=== PATIENT | female | born 1985 | race Two or more races ===

== ENCOUNTER 2024-12-13 16:42 | Inpatient (IN) | payer MEDICAID, OTHER ==
[~2024-12-13] VITALS: Ht 165.1 cm; Wt 66.0 kg
[2024-12-13 17:50] LABS: Albumin 3.5 g/dL (3.2-4.8); Anion Gap 8 (5-15); BUN/Creatinine Ratio 5.7 (10.0-20.0); Calcium 8.7 mg/dL (8.7-10.4); Carbon Dioxide 25 mmol/L (20-31); Chloride 103 mmol/L (98-107); Potassium 4.4 mmol/L (3.5-5.1)
[2024-12-13 17:52] LABS: Alanine Aminotransferase < 9 U/L (7-40); Alkaline Phosphatase 155 U/L (46-116); Bilirubin, Total 0.2 mg/dL (0.2-1.0); Blood Urea Nitrogen 6 mg/dL (9-23); Glucose 242 mg/dL (74-106); Sodium 136 mmol/L (136-145); Total Protein 8.3 g/dL (5.7-8.2)
--- NOTE | 2024-12-13 17:55 | ED.PDOC ---
Musculoskeletal HPI Comments HPI: 39y F who presents to the ED via EMS for chief complaint of extremity pain - pt has wound to the R foot and had appt with haulage boss Agustin Lyles at earlier this AM and states he was told to come to the ED to be admitted and debridement surgery on R foot tomorrow AM, 12/14/24 - pt states she had wound to the R foot 3x weeks prior and came to and had paddy bandage applied and discharged with outpatient wound care - pt states she has been having home health care come 2x weekly for wound care -pt states she noted increasing pain and made appt with haulage boss today - pt in the ED, states she has history of DM 1 and has history of muliple amputations on foot. - pt presents to the ED and states she had R foot bandaged by DR Velez earlier this AM - pt otherwise ambulatory on scene - pt denies any other symptoms at this time - pt has noted BP of 169/74 but otherwise stable vitals in the ED Patient is currently not on any antibiotics. Past Medical History: DM 1, NEUROPATHY, ANEMIA, Past Surgical History: amputation of 4th and 5th toes L foot, 2 x c-sections Social History: Denies ETOH, smoking, and drug use. Medications: unknown Allergies: ceftriaxone, doxycycline HPI: Poor Historian. REVIEW OF SYSTEMS: CONSTITUTIONAL: Denies acute: fever, diaphoresis, chills, generalized weakness. HEAD: Denies acute: headache, photophobia Eyes: Denies acute: Double vision, vision loss, eye pain, eye discharge. EARS: Denies acute: tinnitus, hearing loss, ear discharge, ear pain, THROAT: Denies acute: sore throat, swelling, difficulty swallowing , pain with swallowing, change in voice. NECK: Denies acute: neck pain, neck swelling, stiff neck. HEART: Denies acute : chest pain, palpitations, LUNGS: Denies acute: SOB, wheezing, cough, hemoptysis ABDOMEN: Denies acute: abdominal pain, Nausea, Vomiting, diarrhea, melena , hematemesis, hematochezia SKIN: Denies acute: rash, redness, lesions, itchiness. EXTREMITIES: Denies acute: calf pain, numbness, tingling, weakness, Denies acute: Low back pain. Neuro: Denies acute: focal neurological deficit, motor or sensory focal neurological deficit, tremors, seizure like activity, confusion, dizziness, change in mental status, loss of bowel or bladder function, cauda equina like symptoms. : Denies acute: dysuria, hematuria, flank pain, increase in urinary frequency. PSYCH: Denies acute: hallucination, suicidal ideation, homicidal ideation. FEMALE: Denies acute: abnormal vaginal bleeding, foul odor, unusual discharge. PHYSICAL EXAM: General: ------no--acute distress, awake and alert. Head: normocephalic, atraumatic. Neck: supple, trachea is midline, no swelling. Throat: Normal phonation. Eyes:, no erythema, no purulent discharge, no proptosis, no icterus. Heart: regular rate, regular rhythm, no significant murmur appreciated. Lungs: no apparent respiratory distress, Able to speak in full sentences. No wheezing, no rhonchi, no crackles. No stridors Clear to auscultation bilaterally. Abdomen: non tender to palpation, non distended, soft, no guarding, no rebound, + bowel sounds. Neuro: Awake, Alert, oriented to name, self, situation, follows commands GCS=15. Speech is normal. Skin: no petechia, no purpura, no cyanosis, non-pale, not jaundice. Lower extremities: --no - Pitting edema no deformity, no focal swelling, no calf TTP. Patient has chronic deformity of her left medial malleoli. History of left foot toe amputation. Right lower extremity right foot ankle is in wound dressing from the haulage boss's office. The has been showed me the pictures of the wound today. Noted diffuse deep ulcer at the plantar aspect of the right foot. Makes eye contact. moves all four extremities. Face: no apparent facial droop. Ambulating in the ED independently. ED COURSE: DISCLAIMER: This medical document was created using an electronic medical record system with voice recognition software and computerized dictation system. Although this document has been carefully reviewed, there might still be some phonetic and ty pographical errors. Occasional wrong-word or "sound-alike" substitutions may have occurred due to the inherent limitations of voice recognition software. These areas are purely typographical due to imperfections of the software programs and do not reflect any compromise in the patient's medical care. Please read the chart carefully and recognize, using context, where these substitutions have occurred. Chief Complaint: Medical Clearance Time Seen by MD: 17:45 Reviewed Notes: Medications, Allergies Allergies: Coded Allergies: Ceftriaxone (Verified Allergy, Severe, 12/13/24) PT GETS INCREASED GENERALIZED PAIN AND NUMBNESS Doxycycline (Verified Allergy, Unknown, 12/13/24) Information Source: Patient, Spouse Mode of Arrival: Ambulatory Was a procedure done? Was a procedure done?: No Differential Diagnosis EXT Differential Diagnosis: Cellulitis, CHF, Deep Vein Thrombosis, Compartment Syndrome, Fracture, Sprain, Dislocation, Laceration, Septic, Neurovascular injury, Arthritis, Bursitis, Other (Osteomyelitis) X-Ray, Labs, Meds, VS Vital Signs Date Time Temp Pulse Resp B/P (MAP) Pulse Ox O2 Delivery O2 Flow Rate FiO2 12/13/24 18:30 98.4 95 18 143/81 (101) 97 98.4 12/13/24 16:45 98.3 97 18 169/74 97 98.3 Lab Test 12/13/24 17:20 Range/Units Sodium Level 136 136-145 mmol/L Potassium Level 4.4 3.5-5.1 mmol/L Chloride Level 103 98-107 mmol/L Carbon Dioxide Level 25 20-31 mmol/L Anion Gap 8 5-15 Blood Urea Nitrogen 6 L 9-23 mg/dL Creatinine 1.05 H 0.550-1.02 mg/dL Glomerular Filtration Rate Calc 69 >90 mL/min BUN/Creatinine Ratio 5.7 L 10.0-20.0 Serum Glucose 242 H 74-106 mg/dL Lactic Acid Level 0.5 0.4-2.0 mmol/L Calcium Level 8.7 8.7-10.4 mg/dL Total Bilirubin 0.2 0.2-1.0 mg/dL Aspartate Amino Transferase (AST) 15 13-40 U/L Alanine Aminotransferase (ALT) < 9 7-40 U/L Alkaline Phosphatase 155 H 46-116 U/L C-Reactive Protein High Sensitivity 0.59 <1.0 mg/dL Total Protein 8.3 H 5.7-8.2 g/dL Albumin 3.5 3.2-4.8 g/dL Microbiology Date/Time Source Procedure Growth Status 12/13/24 17:20 Blood Blood Culture - Preliminary NO GROWTH AFTER 48 HOURS OF INCUBATION. Resulted 12/13/24 17:10 Blood Blood Culture - Preliminary NO GROWTH AFTER 48 HOURS OF INCUBATION. Resulted [facility] [id number] [facility] [address] Ph: [phone] DIAGNOSTIC IMAGING Diagnostic Imaging Report : [id number] Signed PATIENT: TERESA BRITO ACCT: [id number] UNIT: [id number] : 1985 LOC: ER ROOM / BED: / AGE / SEX: 39 / F ADM STATUS: REG ER SERVICE 1748 ORDERING PHYSICIAN: JOSEF TORRES DO PROCEDURE(s): RFOOT - R FOOT 3 VIEW XRAY REASON: DIABETIC FOOT ULCER ORDER NUMBER(s): [id number], ACCESSION NUMBER(s): [id number] EXAM: XY R FOOT 3 VIEW XRAY CLINICAL HISTORY: DIABETIC FOOT ULCER COMPARISON: None TECHNIQUE: XY R FOOT 3 VIEW XRAY Findings/Impression: 3 views of the right foot. There is no evidence of an acute fracture, dislocation, osseous erosions, blastic, or lytic lesions. No radiopaque foreign bodies. Small lateral soft tissue injury. Possible solitary locule of subcutaneous emphysema seen on the oblique view. Cannot exclude an underlying infectious process. Recommend contrast-enhanced MRI or a nuclear medicine WBC scan for further evaluation as clinically indicated. ATED BY: MARYBEL PADILLA DO DICTATED DATE/TIME: 12/13/241834 SIGNED BY: MARYBEL PADILLA DO SIGNED DATE/TIME: 12/13/241834 CC: Time of 1ST Reevaluation: 00:00 Reevaluation 1ST: Patient Education/Counseling: Diagnosis, Treatment Family Education/Counseling: Diagnosis, Treatment Comments MDM: patient presented with the above HPI.--diabetic foot ulcer----workup was initiated. patient was found with the above mentioned diagnosis. the following medications were ordered: please refer to order lists of meds and tests obtained by myself Dr. Torres. Patient ED course and VS have been stabilized. Patient has been reassessed in the ED and remained in a stable condition. Pertinent incidental findings were discussed with the patient and/or family. Patient/family voices understanding and is agreeable with plan. Patient has been observed in the ED adequate length of time to insure improvement/stability. Escalation of care considered: Consideration of escalation to observation or admission Antibiotics initiated. Patient was ADMITTED to the medicine team for further evaluation and treatment of their presentation. All the reports of any imaging studies that were ordered by myself were reviewed by myself. Sepsis Sepsis Reasesment Focused Exam Orders: Laboratory Tests 12/13/24 17:20: Lactic Acid Level 0.5 Departure 1 Departure Time of Disposition: 18:35 Impression: Primary Impression: Diabetic ulcer of right foot Disposition: ADMITTED INPATIENT Admit to: Tele Condition: Guarded Discharged With: Self Critical Care Note Critical Care Time?: No Stability Stability form required: No I personally scribed for JOSEF TORRES DO ([email or web address]) on 12/13/24 at 17:55. Electronically submitted by Luis F Davis ([email or web address]). I personally scribed for JOSEF TORRES DO ([email or web address]) on 12/13/24 at 21:38. Electronically submitted by Luis F Davis ([email or web address]). I personally scribed for JOSEF TORRES DO ([email or web address]) on 12/14/24 at 10:13. Electronically submitted by Yobany Mcghee ([email or web address]). JOSEF TORRES DO Dec 13, 2024 17:55
--- NOTE | 2024-12-13 18:37 | DVH ---
EXAM: XY R FOOT 3 VIEW XRAY CLINICAL HISTORY: DIABETIC FOOT ULCER COMPARISON: None TECHNIQUE: XY R FOOT 3 VIEW XRAY Findings/Impression: 3 views of the right foot. There is no evidence of an acute fracture, dislocation, osseous erosions, blastic, or lytic lesions. No radiopaque foreign bodies. Small lateral soft tissue injury. Possible solitary locule of subcutaneous emphysema seen on the obli que view. Cannot exclude an underlying infectious process. Recommend contrast-enhanced MRI or a [facility] medicine WBC scan for further evaluation as clinically indicated.
[2024-12-13] MEDS ORDERED: VANCOMYCIN PER PHARMACY 0 MG IV SCH (19:15)
[2024-12-13] MEDS ORDERED: DEXTROSE (50%) 50ML SYRG IV PRN (19:15)
--- NOTE | 2024-12-13 19:15 | DVHHP2 ---
History of Present Illness Reason for Visit: Right foot wound History of Present Illness 39-year-old female presents for evaluation of right foot wound. Patient was seen by her client success manager today who advised her to present for admission. She states client success manager is planning to do a debridement tomorrow in the morning. Patient denies fever or chills. No pain. No other acute symptoms Past Medical History Diabetes mellitus, hypertension Past Surgical History Toe amputation, Family History Noncontributory Smoke: No ALCOHOL: none Drugs: None Lives: with Family Review of Systems Review of Systems Review of systems are currently negative otherwise addressed in HPI. Allergies: Coded Allergies: Ceftriaxone (Verified Allergy, Severe, 12/13/24) PT GETS INCREASED GENERALIZED PAIN AND NUMBNESS Doxycycline (Verified Allergy, Unknown, 12/13/24) Medications Current Medications Medications Dose Ordered Sig/Duncan Route Start Time Stop Time Status Last Admin Dose Admin Hydralazine HCl 10 mg Q6HP PRN IV 12/13/24 19:15 UNV Vancomycin HCl 0 ml @ 0 mls/hr UD IV 12/13/24 19:15 UNV Piperacillin Sod/ Tazobactam Sod 100 ml @ 25 mls/hr Q8HR IV 12/13/24 22:00 UNV Diagnostic Test (Pha) 1 strip Q6HR 12/14/24 00:00 UNV Insulin Human Regular Q6HR SC 12/14/24 00:00 UNV Dextrose 50 ml UD PRN IV 12/13/24 19:15 UNV Ondansetron HCl 4 mg Q4HP PRN IV 12/13/24 19:15 UNV Morphine Sulfate 2 mg Q4HPRN PRN IV 12/13/24 19:15 UNV Exam Vital Signs Vital Signs Date Time Temp Pulse Resp B/P (MAP) Pulse Ox O2 Delivery O2 Flow Rate FiO2 12/13/24 16:45 98.3 97 18 169/74 97 98.3 Exam Gen: 39-year-old female in mild distress Skin: Warm, dry, normal color and texture, no rash. HEENT: Normocephalic atraumatic, mucous membranes moist and pink. Neck: Cervical and supraclavicular nodes normal without enlargement, trachea is midline, thyroid gland is normal without masses. Pulmonary: Clear to auscultation and percussion bilaterally. Cardiac: Regular rate and rhythm. No murmur Abdomen: Soft, nontender, nondistended, bowel sounds present all 4 quadrants, no guarding, no rigidity, no organomegaly. Extremities: No cyanosis, clubbing, right foot wound Neuro: Cranial nerves II through XII grossly intact, normal affect and speech, no focal motor deficits. Labs/Xrays ORDERING PHYSICIAN: JOSEF TORRES DO PROCEDURE(s): RFOOT - R FOOT 3 VIEW XRAY REASON: DIABETIC FOOT ULCER ORDER NUMBER(s): [id number], ACCESSION NUMBER(s): [id number] EXAM: XY R FOOT 3 VIEW XRAY CLINICAL HISTORY: DIABETIC FOOT ULCER COMPARISON: None TECHNIQUE: XY R FOOT 3 VIEW XRAY Findings/Impression: 3 views of the right foot. There is no evidence of an acute fracture, dislocation, osseous erosions, blastic, or lytic lesions. No radiopaque foreign bodies. Small lateral soft tissue injury. Possible solitary locule of subcutaneous emphysema seen on the oblique view. Cannot exclude an underlying infectious process. Recommend contrast-enhanced MRI or a nuclear medicine WBC scan for further evaluation as clinically indicated. Labs Test 12/13/24 17:20 Range/Units Sodium Level 136 136-145 mmol/L Potassium Level 4.4 3.5-5.1 mmol/L Chloride Level 103 98-107 mmol/L Carbon Dioxide Level 25 20-31 mmol/L Anion Gap 8 5-15 Blood Urea Nitrogen 6 L 9-23 mg/dL Creatinine 1.05 H 0.550-1.02 mg/dL Glomerular Filtration Rate Calc 69 >90 mL/min BUN/Creatinine Ratio 5.7 L 10.0-20.0 Serum Glucose 242 H 74-106 mg/dL Lactic Acid Level 0.5 0.4-2.0 mmol/L Calcium Level 8.7 8.7-10.4 mg/dL Total Bilirubin 0.2 0.2-1.0 mg/dL Aspartate Amino Transferase (AST) 15 13-40 U/L Alanine Aminotransferase (ALT) < 9 7-40 U/L Alkaline Phosphatase 155 H 46-116 U/L C-Reactive Protein High Sensitivity 0.59 <1.0 mg/dL Total Protein 8.3 H 5.7-8.2 g/dL Albumin 3.5 3.2-4.8 g/dL SEPSIS Sepsis Screen Date sepsis recognized/suspect: Dec 13, 2024 Time Sepsis recognized/suspect: 1644 Recent Procedure: No On Antibiotic Therapy: No Respiratory Rate >20: No Heart Rate >90: No Temp<36 C (96.8 F) or >38.3 C: No SBP <90 or MAP <65 mmHG: Yes (MAP 101) New Acute Mental Status Change: No Is the patient on CPAP, BIPAP,: No Physician Orders Sales Team Leader (12/13/24 ) Complete Blood Count (12/13/24 17:03) Erythrocyte Sedimentation Rate (12/13/24 17:03) Electrocardigram (12/13/24 17:03) Blood Culture (12/13/24 17:03) R Foot 3 View Xray (12/13/24 17:43) Admit (12/13/24 18:40) Hydralazine Injection (Apresoline Inject (12/13/24 19:15) Vancomycin Per Pharmacy (12/13/24 19:15) Piperacillin-Tazob 3.375gm (Zosyn 3.375g (12/13/24 22:00) *Podiatry Consult [facility]) (12/13/24 19:05) Basic Metabolic Panel (12/14/24 04:00) PTPTT (12/13/24 19:05) Type And Screen (12/13/24 19:05) Sodium Chloride 0.9% (12/13/24 19:15) Glucose Blood (Accu-Chek Comfort Curve T (12/14/24 00:00) Insulin R (Human) (Insulin R) (12/14/24 00:00) Dextrose 50% Syringe (12/13/24 19:15) Ondansetron Hcl (Zofran) (12/13/24 19:15) Complete Blood Count (12/14/24 04:00) Npo (Nothing By Mouth) Diet (12/14/24 Breakfast) Condition: Stable (12/13/24 19:05) Bedrest With Bathroom Privileg (12/13/24 19:05) Morphine Sulfate Injection (12/13/24 19:15) Vital Signs Date Time Temp Pulse Resp B/P (MAP) Pulse Ox O2 Delivery O2 Flow Rate FiO2 12/13/24 16:45 98.3 97 18 169/74 97 98.3 Laboratory Tests Test 12/13/24 17:20 Lactic Acid Level 0.5 mmol/L (0.4-2.0) White Blood Count Pending Assessment/Plan Assessment/Plan Assessment Right foot wound Diabetes mellitus Hypertension Plan Admit the patient to Med surge to the hospitalist Zosyn/vancomycin Podiatry consult NPO Continue treatment per orders. Plan discussed with: Patient My Orders Orders - CLAIRE RITTER Procedure Category Date Status Time Admit ADMIT 12/13/24 Transmitted 18:40 Hydralazine Injection PHA 12/13/24 Logged (Apresoline Inject 19:15 Vancomycin Per PHA 12/13/24 Logged Pharmacy 19:15 Piperacillin-Tazob PHA 12/13/24 Logged 3.375gm (Zosyn 3.375g 22:00 *Podiatry Consult CONS 12/13/24 Transmitted [facility](Dvmg) 19:05 Basic Metabolic Panel LAB 12/14/24 Verified 04:00 PTPTT LAB 12/13/24 Logged 19:05 Type And Screen BBK 12/13/24 Logged 19:05 Sodium Chloride 0.9% PHA 12/13/24 Logged 19:15 Glucose Blood PHA 12/14/24 Logged (Accu-Chek Comfort 00:00 Insulin R (Human) PHA 12/14/24 Logged (Insulin R) 00:00 Dextrose 50% Syringe PHA 12/13/24 Logged 19:15 Ondansetron Hcl PHA 12/13/24 Logged (Zofran) 19:15 Complete Blood Count LAB 12/14/24 Verified 04:00 Npo (Nothing By DIET 12/14/24 Transmitted Mouth) Diet Breakfast Condition: Stable ROBINSON 12/13/24 In Process 19:05 Bedrest With Bathroom ROBINSON 12/13/24 In Process Privileg 19:05 Morphine Sulfate PHA 12/13/24 Logged Injection 19:15 Date of Service: Dec 13, 2024 Billing Provider: CLAIRE RITTER Common Visit Codes: [id number] INP/OBS CARE (MOD) CLAIRE RITTER Dec 13, 2024 19:15
[2024-12-13 19:40] LABS: Hematocrit 28.8 % (36.0-46.0); Hemoglobin 9.2 g/dL (12.2-16.2); Mean Corpuscular Hemoglobin 29.3 pg (28.0-32.0); Mean Corpuscular Volume 92.2 fL (80.0-100.0); Nucleated Red Blood Cells % 0.2 %
[2024-12-13] MEDS: PIPERACILLIN-TAZOB 3.375GM 100 ML IV ONE (19:53)
[2024-12-13 20:15] VITALS: O2SAT 100
[2024-12-13 20:26] LABS: INR 1.06 (0.9-1.15); Partial Thromboplastin Time 30.2 SEC (24.5-34.5); Prothrombin Time 11.2 sec (9.3-11.8)
[2024-12-13] MEDS: SODIUM CHLORIDE 0.9% 1,000 ML IV ONE (20:59)
[2024-12-13] MEDS: VANCOMYCIN PER PHARMACY 0 MG IV STA (20:59)
[2024-12-13] MEDS: VANCOMYCIN 1.25GM/250ML 250 ML IV ONE (21:15)
[2024-12-14] VITALS (8 sets, daily range): BP systolic 124–156; BP diastolic 71–81; PULSE 79–110; RESP 18–21; TEMP 97.4–100.3; O2SAT 94–98
[2024-12-14] MEDS: InsuLIN REG 1unit/0.01ml Soln (100units/ml) SC SCH
[2024-12-14] MEDS: ACCU-CHEK COMFORT CURVE STRIP VI SCH (00:24)
[2024-12-14] MEDS: hydrALAZINE HCL 20 MG/ML VL IV PRN (03:42)
[2024-12-14] MEDS: MORPHINE SULFATE INJ 2 MG/ml SYRG IV PRN (03:51)
[2024-12-14 05:34] LABS: Nucleated Red Blood Cells % 0.0 %
[2024-12-14 05:37] LABS: Hematocrit 23.1 % (36.0-46.0); Hemoglobin 7.7 g/dL (12.2-16.2); Mean Corpuscular Hemoglobin 29.8 pg (28.0-32.0); Mean Corpuscular Volume 89.9 fL (80.0-100.0)
[2024-12-14 06:01] LABS: Anion Gap 8 (5-15); Carbon Dioxide 26 mmol/L (20-31); Chloride 104 mmol/L (98-107); Potassium 4.1 mmol/L (3.5-5.1); Sodium 138 mmol/L (136-145)
[2024-12-14 06:07] LABS: BUN/Creatinine Ratio 8.9 (10.0-20.0); Blood Urea Nitrogen 9 mg/dL (9-23)
[2024-12-14] MEDS: PIPERACILLIN-TAZOB 3.375GM 100 ML IV SCH (06:26)
[2024-12-14 06:27] LABS: Calcium 8.5 mg/dL (8.7-10.4); Glucose 142 mg/dL (74-106)
[2024-12-14] MEDS: VANCOMYCIN 500mg/100mL 100 ML IV SCH (09:44)
--- NOTE | 2024-12-14 12:06 | DVHCONRES ---
Date Seen: Dec 14, 2024 Reason for Consultation Right foot wound History of Present Illness 39-year-old female presents for evaluation of right foot wound. Patient was seen by her clinical cytogenetics director today who advised her to present for admission. She states clinical cytogenetics director is planning to do a debridement tomorrow in the morning. Patient denies fever or chills. No pain. No other acute symptoms Past Medical History See H&P Past Surgical History See H&P Allergies: Coded Allergies: Ceftriaxone (Verified Allergy, Severe, 12/13/24) PT GETS INCREASED GENERALIZED PAIN AND NUMBNESS Doxycycline (Verified Allergy, Unknown, 12/13/24) Current Medications Current Medications Medications (Trade) Dose Ordered Sig/Duncan Route PRN Reason Start Time Stop Time Status Last Admin Vancomycin HCl 0 ml @ 0 mls/hr UD STAT IV 12/13/24 17:41 12/13/24 17:43 DC Hydralazine HCl (Apresoline Injection) 10 mg Q6HP PRN IV SBP>150 12/13/24 19:15 12/14/24 03:42 Vancomycin HCl 0 ml @ 0 mls/hr UD IV 12/13/24 19:15 Piperacillin Sod/ Tazobactam Sod 100 ml @ 25 mls/hr Q8HR IV 12/14/24 06:00 12/14/24 06:26 Diagnostic Test (Pha) (Accu-Chek Comfort Curve T) 1 strip Q6HR 12/14/24 00:00 12/14/24 06:28 Insulin Human Regular (InsuLIN R) Q6HR SC 12/14/24 00:00 12/14/24 06:28 Dextrose 50 ml UD PRN IV Blood Sugar LESS THAN 60 12/13/24 19:15 Ondansetron HCl (Zofran) 4 mg Q4HP PRN IV NAUSEA / VOMITING 12/13/24 19:15 Morphine Sulfate 2 mg Q4HPRN PRN IV SEVERE PAIN (7-10 PAIN SCALE) 12/13/24 19:15 12/14/24 03:51 Vancomycin HCl 100 ml @ 200 mls/hr Q12H IV 12/14/24 09:00 12/14/24 09:44 Vital Signs Vital Signs Date Time Temp Pulse Resp B/P (MAP) Pulse Ox O2 Delivery O2 Flow Rate FiO2 12/14/24 09:00 98.7 88 18 124/75 (91) 96 98.7 12/14/24 02:42 Room Air* 0 21 Physical Exam Dermatological: Skin is dry with mild erythema and some maceration around the wound site No gross deformities noted Mild non-pitting edema present bilaterally Right plantar foot wound with area of fluctuance fibrosis and necrosis Vascular: Dorsalis pedis and posterior tibial pulses are 1+ bilaterally Capillary refill is under 2 seconds Skin temperature is warm bilaterally Neurologic: Protective sensation is absent on the plantar forefoot bilaterally Monofilament testing reveals decreased sensation in multiple plantar sites Musculoskeletal: Range of motion at the ankle and MTP joints is within normal limits. Strength is 5/5 in all tested muscle groups. Gait is antalgic due to offloading of the affected limb. Labs/Diagnostic Data Labs Test 12/14/24 11:06 12/14/24 05:00 12/13/24 19:48 12/13/24 19:08 Range/Units POC Glucose 68 L 70-106 mg/dl White Blood Count 8.1 4.4-10.8 10^3/uL Red Blood Count 2.57 L 4.0-5.20 10^6/uL Hemoglobin 7.7 #L 12.2-16.2 g/dL Hematocrit 23.1 #L 36.0-46.0 % Mean Corpuscular Volume 89.9 80.0-100.0 fL Mean Corpuscular Hemoglobin 29.8 28.0-32.0 pg Mean Corpuscular Hemoglobin Concent 33.1 32.0-36.0 g/dL Red Cell Distribution Width 16.3 H 11.8-14.3 % Platelet Count 241 140-450 10^3/uL Mean Platelet Volume 9.1 6.9-10.8 fL Neutrophils (%) (Auto) 86.1 H 37.0-80.0 % Lymphocytes (%) (Auto) 7.3 L 10.0-50.0 % Monocytes (%) (Auto) 4.1 0.0-12.0 % Eosinophils (%) (Auto) 1.6 0.0-7.0 % Basophils (%) (Auto) 0.9 0.0-2.0 % Neutrophils # (Auto) 7.0 1.6-8.6 10 ^3/uL Lymphocytes # (Auto) 0.6 0.4-5.4 10 ^3/uL Monocytes # (Auto) 0.3 0-1.3 10 ^3/uL Eosinophils # (Auto) 0.1 0-0.8 10 ^3/uL Basophils # (Auto) 0.1 0-0.2 10 ^3/uL Nucleated Red Blood Cells 0.0 % Sodium Level 138 136-145 mmol/L Potassium Level 4.1 3.5-5.1 mmol/L Chloride Level 104 98-107 mmol/L Carbon Dioxide Level 26 20-31 mmol/L Anion Gap 8 5-15 Blood Urea Nitrogen 9 9-23 mg/dL Creatinine 1.01 0.550-1.02 mg/dL Glomerular Filtration Rate Calc 73 >90 mL/min BUN/Creatinine Ratio 8.9 L 10.0-20.0 Serum Glucose 142 H 74-106 mg/dL Calcium Level 8.5 L 8.7-10.4 mg/dL Random Vancomycin Level 18.2 H 5-10 ug/mL Prothrombin Time 11.2 9.3-11.8 sec Prothrombin Time INR 1.06 0.9-1.15 Activated Partial Thromboplast Time 30.2 24.5-34.5 SEC Erythrocyte Sedimentation Rate 110 H 0-20 mm/hr Test 12/13/24 17:20 Range/Units Lactic Acid Level 0.5 0.4-2.0 mmol/L Total Bilirubin 0.2 0.2-1.0 mg/dL Aspartate Amino Transferase (AST) 15 13-40 U/L Alanine Aminotransferase (ALT) < 9 7-40 U/L Alkaline Phosphatase 155 H 46-116 U/L C-Reactive Protein High Sensitivity 0.59 <1.0 mg/dL Total Protein 8.3 H 5.7-8.2 g/dL Albumin 3.5 3.2-4.8 g/dL Problems(with codes): (1) Necrotizing fasciitis (2) Cellulitis of foot (3) Foot abscess, right (4) Diabetic ulcer of right foot Plan/Recommendation ASSESSMENT: Patient is a 39 year old seen on the floor for a worsening ulcer PLAN: - The patients chart was reviewed, clinical findings were discussed with the patient, the etiologies of the conditions were discussed in detail, and a treatment plan was agreed to at this time, with both oral and written instructions provided. - reviewed advanced imaging - discussed plan is to perform an incision and drainage - patient has been NPO since midnight - take him to the OR today - we will get cultures in the OR - can weightbear as tolerated in postoperative shoe - patient will need wound VAC placed after surgery All questions were answered and concerns addressed to the patient's satisfaction. The patient was given the phone number to the clinic and was told how to make contact with the clinic should any concerns or questions arise. Patient understands that if any questions or concerns arise prior to the next appointment, we should be contacted immediately. FOLLOW-UP: Continue to follow while inpatient Plan discussed with: Patient Visit Coding Podiatry Date of Service if different f: Dec 14, 2024 Billing Provider: ASHLIE RAY DPM Podiatry Common Visit Codes: CONSULT ONLY Podiatry Consult Codes: [id number]/OBS [id number] NEW/EST HI 80 ASHLIE RAY DPM Dec 14, 2024 12:06
--- NOTE | 2024-12-14 13:11 | DVHOP2 ---
Operative Report - 2 Report Details Date: 12/14/24 Preop Diagnosis: 1. Right foot abscess 2. Right foot necrotizing fasciitis 3. Right foot chronic ulceration 4. Right foot cellulitis Postop Diagnosis: Same as preop Surgeon: Ashlie Ray MD Anesthesiologist: See anesthesia Anesthesia: Mac Consent: The patient was informed of the risks and benefits of the procedure. These include but are not limited to complications of anesthesia, postoperative infection, incomplete relief of symptoms, recurrence of symptoms, damage to blood vessels, nerves and tendons, deep venous thrombosis, pulmonary embolism and possible need for repeat surgery in the future. Complications: None Estimated Blood Loss: Minimal Fluids: See anesthesia Findings: Consistent with diagnosis Indications for Surgery: Worsening right foot pain Name of Procedure Performed 1. Right foot I&D (40239) Procedure Details Procedure Details: PRE-PROCEDURE INFORMATION: In the pre-op holding area, the extremity to be operated on was clearly marked and the patient verified correct laterality of the marking. The patient was transferred to the OR table and placed in a supine position. A timeout was performed in which identification of the correct patient, procedure, location, and materials was done. The right foot and leg were prepped and draped in normal sterile fashion. DESCRIPTION OF PROCEDURE: Attention was directed to the right where area of fluctuance was noted. An incision was made over this area and was deepened through blunt dissection. The incision was deepened to the level of abscess and bone. Care was taken to the dissection to avoid any neurovascular and tendinous structures. The incision was deepened to the bone, and the abscess appeared to be purulent fluid consistent with pus. The cortices of the bone was then removed with rongeur an all necrotic tissue. After the abscess was drained, the area was irrigated with 3 L normal saline using cysto tubing. Deep cultures were then obtained from the wound. The area was then inspected and any areas of tracking, especially along the tendons were also drained. The wound was packed with Betadine-soaked gauze and recommend placement of wound VAC. POSTOPERATIVE INFORMATION: The patient tolerated the above noted procedure and anesthesia well and was transferred to the PACU with vital signs stable, and vascular status intact with capillary refill intact to all digits. Deep cultures were taken. Recommend placement of wound VAC. Patient will follow up with me after discharge. Patient will need 6 weeks IV antibiotics Condition Good Disposition Still a Patient Visit Coding Podiatry Date of Service if different f: Dec 14, 2024 Billing Provider: ASHLIE RAY DPM Podiatry Common Visit Codes: PROCEDURE ONLY [id number] FOOT BONE LESION: 91436-HV FOOT BONE LESN (RIGHT) ASHLIE RAY DPM Dec 14, 2024 13:11
[2024-12-14] MEDS: LIDOCAINE 1% HCL (LOCAL ANESTH.) INJ 20ML MDV ONE (13:26)
--- NOTE | 2024-12-14 14:14 | DVHPN2 ---
Subjective patient admitted for worsening foot wound in PACU, s/p I&D Reviewed: Care Plan Changes from previous H/P or p: No Changes Objective Vitals Vital Signs Date Time Temp Pulse Resp B/P (MAP) Pulse Ox O2 Delivery O2 Flow Rate FiO2 12/14/24 13:05 91 16 162/88 (112) 100 12/14/24 13:00 98.3 98.3 12/14/24 02:42 Room Air* 0 21 Exam HEENT: AT CV: RRR lung: CTAB abd: ext R foot in dressing Medications Current Medications Medications Dose Ordered Sig/Duncan Route Start Time Stop Time Status Last Admin Dose Admin Hydralazine HCl 10 mg Q6HP PRN IV 12/13/24 19:15 12/14/24 03:42 10 MG Vancomycin HCl 0 ml @ 0 mls/hr UD IV 12/13/24 19:15 Piperacillin Sod/ Tazobactam Sod 100 ml @ 25 mls/hr Q8HR IV 12/14/24 06:00 12/14/24 06:26 25 MLS/HR Diagnostic Test (Pha) 1 strip Q6HR 12/14/24 00:00 12/14/24 12:00 1 STRIP Insulin Human Regular Q6HR SC 12/14/24 00:00 12/14/24 06:28 3 UNITS Dextrose 50 ml UD PRN IV 12/13/24 19:15 Ondansetron HCl 4 mg Q4HP PRN IV 12/13/24 19:15 Morphine Sulfate 2 mg Q4HPRN PRN IV 12/13/24 19:15 12/14/24 03:51 2 MG Vancomycin HCl 100 ml @ 200 mls/hr Q12H IV 12/14/24 09:00 12/14/24 09:44 200 MLS/HR Laboratory Results Laboratory Tests 12/14/24 05:00 Chemistry Test 12/13/24 17:20 12/14/24 05:00 Albumin 3.5 g/dL (3.2-4.8) Calcium Level 8.7 mg/dL (8.7-10.4) 8.5 mg/dL (8.7-10.4) L Total Protein 8.3 g/dL (5.7-8.2) H Coagulation Test 12/13/24 19:48 Prothrombin Time 11.2 sec (9.3-11.8) Prothrombin Time INR 1.06 (0.9-1.15) Activated Partial Thromboplast Time 30.2 SEC (24.5-34.5) LFT Test 12/13/24 17:20 Alanine Aminotransferase (ALT) < 9 U/L (7-40) Alkaline Phosphatase 155 U/L (46-116) H Aspartate Amino Transferase (AST) 15 U/L (13-40) Total Bilirubin 0.2 mg/dL (0.2-1.0) Labs and/or images reviewed: Labs reviewed by me, Image(s) reviewed by me Assessment/Plan Assessment/Plan 39 yo F with: #R foot wound/DM Ulcer -podiatry consulted. s/p I&D, s/p Intra-op cultures -pending blood cx -c/w broad spectrum abx -MRSA screen #DM-2 -SSI, CCD medium diet as tolerated. #HTN #HLD -resume home medications as indicated. Plan discussed with: Patient Date of Service: Dec 14, 2024 Billing Provider: FLORENTIN YO MD Common Visit Codes: [id number] INP/OBS CARE(MOD) FLORENTIN YO MD Dec 14, 2024 14:14
[2024-12-14] MEDS ORDERED: HYDROcodone-ACET 5/325MG TAB PO PRN (17:45)
[2024-12-14 19:44] LABS: Albumin 3.5 g/dL (3.2-4.8); Anion Gap 8 (5-15); BUN/Creatinine Ratio 7.1 (10.0-20.0); Calcium 8.8 mg/dL (8.7-10.4); Carbon Dioxide 25 mmol/L (20-31); Chloride 104 mmol/L (98-107); Potassium 4.1 mmol/L (3.5-5.1); Sodium 137 mmol/L (136-145)
[2024-12-14 19:51] LABS: Alanine Aminotransferase < 9 U/L (7-40); Alkaline Phosphatase 148 U/L (46-116); Bilirubin, Total 0.3 mg/dL (0.2-1.0); Blood Urea Nitrogen 7 mg/dL (9-23); Glucose 53 mg/dL (74-106); Total Protein 8.4 g/dL (5.7-8.2)
[2024-12-14] MEDS: ACETAMINOPHEN 325 MG TAB PO PRN (22:03)
[2024-12-14] MEDS: BUPIVACAINE 0.5% P/F INJ 10 ML VIAL ONE (23:25)
[2024-12-15] VITALS (7 sets, daily range): BP systolic 110–127; BP diastolic 53–69; PULSE 87–98; RESP 16–20; TEMP 98–98.8; O2SAT 95–99
[2024-12-15] MEDS: ONDANSETRON HCL 4 MG/2 ML VIAL IV PRN (05:48)
--- NOTE | 2024-12-15 10:27 | DVHPN2 ---
Subjective The patient is seen and examined at bedside. The patient wanted to go home. No fever or chill. Still have foot pain. Reviewed: Care Plan Changes from previous H/P or p: No Changes Objective Vitals Vital Signs Date Time Temp Pulse Resp B/P (MAP) Pulse Ox O2 Delivery O2 Flow Rate FiO2 12/15/24 09:00 98.0 89 18 111/53 (72) 96 98.0 12/14/24 20:00 Room Air* 0 21 Intake/Output Intake and Output 12/15/24 07:00 Intake Total 680 ml Balance 680 ml Intake Oral 480 ml IV Total 200 ml # Voids 1 General Appearance: Alert, Oriented X3, Cooperative, No acute distress HEENT: Atraumatic, PERRLA, EOMI, Mucous membr. moist/pink Neck: Supple Lungs: Clear to auscultation Cardiovascular: Regular rate, Normal S1, Normal S2, No murmurs, Gallops, Rubs Abdomen: Normal bowel sounds, Soft, No tenderness Neuro: Cranial nerves 3-12 NL Psych/Mental Status: Mental status NL Medications Current Medications Medications Dose Ordered Sig/Duncan Route Start Time Stop Time Status Last Admin Dose Admin Hydralazine HCl 10 mg Q6HP PRN IV 12/13/24 19:15 12/14/24 22:06 10 MG Vancomycin HCl 0 ml @ 0 mls/hr UD IV 12/13/24 19:15 Piperacillin Sod/ Tazobactam Sod 100 ml @ 25 mls/hr Q8HR IV 12/14/24 06:00 12/15/24 05:44 25 MLS/HR Diagnostic Test (Pha) 1 strip Q6HR 12/14/24 00:00 12/15/24 05:40 1 STRIP Insulin Human Regular Q6HR SC 12/14/24 00:00 12/14/24 06:28 3 UNITS Dextrose 50 ml UD PRN IV 12/13/24 19:15 Ondansetron HCl 4 mg Q4HP PRN IV 12/13/24 19:15 12/15/24 05:48 4 MG Morphine Sulfate 2 mg Q4HPRN PRN IV 12/13/24 19:15 12/14/24 03:51 2 MG Vancomycin HCl 100 ml @ 200 mls/hr Q12H IV 12/14/24 09:00 12/14/24 22:04 200 MLS/HR Acetaminophen/ Hydrocodone Bitart 1 tab Q4HPRN PRN PO 12/14/24 17:45 Acetaminophen 650 mg Q6HP PRN PO 12/14/24 21:45 12/14/24 22:03 650 MG Laboratory Results Laboratory Tests 12/14/24 05:00 12/14/24 19:20 Chemistry Test 12/14/24 19:20 Albumin 3.5 g/dL (3.2-4.8) Calcium Level 8.8 mg/dL (8.7-10.4) Total Protein 8.4 g/dL (5.7-8.2) H LFT Test 12/14/24 19:20 Alanine Aminotransferase (ALT) < 9 U/L (7-40) Alkaline Phosphatase 148 U/L (46-116) H Aspartate Amino Transferase (AST) 15 U/L (13-40) Total Bilirubin 0.3 mg/dL (0.2-1.0) Microbiology Microbiology Date/Time Source Procedure Growth Status 12/14/24 13:06 Foot Right Gram Stain Pending Resulted 12/14/24 13:06 Foot Right Anaerobic Culture - Preliminary Resulted 12/14/24 13:06 Foot Right Aerobic Culture Pending Resulted 12/13/24 17:20 Blood Blood Culture - Preliminary NO GROWTH AFTER 24 HOURS OF INCUBATION. Resulted Labs and/or images reviewed: Labs reviewed by me Assessment/Plan Assessment/Plan #R foot wound/DM Ulcer -podiatry consulted. s/p I&D, s/p Intra-op cultures -blood culture remained negative. Wound culture showed young colony of Gram- negative rods however the final result is not available yet. We will continuing to monitor -c/w broad spectrum abx -MRSA screen #DM-2 -SSI, CCD medium diet as tolerated. #HTN #HLD -resume home medications as indicated. Explained to the patient that we still monitor the culture of the wound. We will discharge when the bacteria identified. This medical document was created using an electronic medical record system with [employer] direct computerized dictation system. Although this document has been carefully reviewed, there may still be some phonetic and typographical errors. These areas are purely typographical due to imperfections of the software programs, and do not reflect any compromise in the patient's medical care. Plan discussed with: Patient Date of Service: Dec 15, 2024 Billing Provider: JAYASHREE CHOE MD Common Visit Codes: [id number] INP/OBS CARE(HIGH) JAYASHREE CHOE MD Dec 15, 2024 10:27
[2024-12-15 10:58] LABS: Hemoglobin 7.4 g/dL (12.2-16.2)
[2024-12-15 11:01] LABS: Hematocrit 23.3 % (36.0-46.0); Mean Corpuscular Hemoglobin 29.5 pg (28.0-32.0); Mean Corpuscular Volume 93.5 fL (80.0-100.0); Nucleated Red Blood Cells % 0.1 %
[2024-12-15 12:23] LABS: Anion Gap 8 (5-15); BUN/Creatinine Ratio 10.1 (10.0-20.0); Blood Urea Nitrogen 14 mg/dL (9-23); Carbon Dioxide 24 mmol/L (20-31); Chloride 103 mmol/L (98-107); Potassium 4.9 mmol/L (3.5-5.1); Total Protein 6.6 g/dL (5.7-8.2)
[2024-12-15 12:24] LABS: Alanine Aminotransferase < 9 U/L (7-40); Albumin 2.9 g/dL (3.2-4.8); Alkaline Phosphatase 125 U/L (46-116); Bilirubin, Total 0.3 mg/dL (0.2-1.0); Calcium 8.0 mg/dL (8.7-10.4); Glucose 178 mg/dL (74-106); Sodium 135 mmol/L (136-145)
[2024-12-15 13:31] LABS: Iron 22.0 ug/dL (50-170); Total Iron Binding Capacity 209.0 ug/dL (250-425)
[2024-12-16] VITALS (9 sets, daily range): BP systolic 97–133; BP diastolic 52–79; PULSE 52–94; RESP 16–20; TEMP 97.8–98.5; O2SAT 95–100
[2024-12-16 06:04] LABS: Hematocrit 19.6 % (36.0-46.0); Mean Corpuscular Hemoglobin 29.7 pg (28.0-32.0); Mean Corpuscular Volume 90.4 fL (80.0-100.0); Nucleated Red Blood Cells % 0.0 %
[2024-12-16 06:09] LABS: Hemoglobin 6.5 g/dL (12.2-16.2)
[2024-12-16 06:19] LABS: INR 1.06 (0.9-1.15); Partial Thromboplastin Time 31.1 SEC (24.5-34.5); Prothrombin Time 11.2 sec (9.3-11.8)
--- NOTE | 2024-12-16 11:37 | DVHPN2 ---
Subjective The patient is seen and examined at bedside. The patient wanted to go home. No fever or chill. Still have foot pain. Reviewed: Care Plan Changes from previous H/P or p: No Changes Objective Vitals Vital Signs Date Time Temp Pulse Resp B/P (MAP) Pulse Ox O2 Delivery O2 Flow Rate FiO2 12/16/24 09:00 97.9 85 18 123/63 (83) 98 97.9 12/15/24 20:00 Room Air* 0 21 Intake/Output Intake and Output 12/16/24 07:00 Intake Total 3220 ml Balance 3220 ml Intake Oral 2720 ml IV Total 500 ml # Voids 5 General Appearance: Alert, Oriented X3, Cooperative, No acute distress HEENT: Atraumatic, PERRLA, EOMI, Mucous membr. moist/pink Neck: Supple Lungs: Clear to auscultation Cardiovascular: Regular rate, Normal S1, Normal S2, No murmurs, Gallops, Rubs Abdomen: Normal bowel sounds, Soft, No tenderness Neuro: Cranial nerves 3-12 NL Psych/Mental Status: Mental status NL Medications Current Medications Medications Dose Ordered Sig/Duncan Route Start Time Stop Time Status Last Admin Dose Admin Hydralazine HCl 10 mg Q6HP PRN IV 12/13/24 19:15 12/14/24 22:06 10 MG Vancomycin HCl 0 ml @ 0 mls/hr UD IV 12/13/24 19:15 Piperacillin Sod/ Tazobactam Sod 100 ml @ 25 mls/hr Q8HR IV 12/14/24 06:00 12/16/24 05:10 25 MLS/HR Diagnostic Test (Pha) 1 strip Q6HR 12/14/24 00:00 12/16/24 11:28 1 STRIP Insulin Human Regular Q6HR SC 12/14/24 00:00 12/14/24 06:28 3 UNITS Dextrose 50 ml UD PRN IV 12/13/24 19:15 Ondansetron HCl 4 mg Q4HP PRN IV 12/13/24 19:15 12/15/24 05:48 4 MG Morphine Sulfate 2 mg Q4HPRN PRN IV 12/13/24 19:15 12/15/24 13:28 2 MG Vancomycin HCl 100 ml @ 200 mls/hr Q12H IV 12/14/24 09:00 12/15/24 21:09 200 MLS/HR Acetaminophen/ Hydrocodone Bitart 1 tab Q4HPRN PRN PO 12/14/24 17:45 Acetaminophen 650 mg Q6HP PRN PO 12/14/24 21:45 12/14/24 22:03 650 MG Laboratory Results Laboratory Tests 12/15/24 10:30 12/16/24 05:00 Coagulation Test 12/16/24 05:00 Prothrombin Time 11.2 sec (9.3-11.8) Prothrombin Time INR 1.06 (0.9-1.15) Activated Partial Thromboplast Time 31.1 SEC (24.5-34.5) Microbiology Microbiology Date/Time Source Procedure Growth Status 12/14/24 13:06 Foot Right Gram Stain - Final Resulted 12/14/24 13:06 Foot Right Anaerobic Culture - Preliminary Resulted 12/14/24 13:06 Foot Right Aerobic Culture - Preliminary Resulted 12/13/24 17:20 Blood Blood Culture - Preliminary NO GROWTH AFTER 48 HOURS OF INCUBATION. Resulted Labs and/or images reviewed: Labs reviewed by me Assessment/Plan Assessment/Plan #R foot wound/DM Ulcer -podiatry consulted. s/p I&D, s/p Intra-op cultures -blood culture remained negative. Wound culture showed young colony of Gram- negative rods however the final result is not available yet. We will continuing to monitor -c/w broad spectrum abx -MRSA screen #DM-2 -SSI, CCD medium diet as tolerated. #HTN #HLD -resume home medications as indicated. Explained to the patient that we still monitor the culture of the wound. We will discharge when the bacteria identified. #Anemia, hb6.5, Will repeat Hb, if less than 7 will transfuse 1PRBC. This medical document was created using an electronic medical record system with [employer] direct computerized dictation system. Although this document has been carefully reviewed, there may still be some phonetic and typographical errors. These areas are purely typographical due to imperfections of the software programs, and do not reflect any compromise in the patient's medical care. Plan discussed with: Patient My Orders Orders - JAYASHREE CHOE MD Procedure Category Date Status Time * [employer] CONS 12/15/24 Transmitted Consult * Picc Line Consult CONS 12/15/24 Transmitted 17:18 Date of Service: Dec 16, 2024 Billing Provider: JAYASHREE CHOE MD Common Visit Codes: [id number] INP/OBS CARE(HIGH) JAYASHREE CHOE MD Dec 16, 2024 11:37
[2024-12-16] MEDS ORDERED: ARTIFICIAL TEARS 15ml EACHEYE PRN (13:45)
[2024-12-16 15:33] LABS: Hematocrit 20.6 % (36.0-46.0)
[2024-12-16 15:37] LABS: Hemoglobin 6.7 g/dL (12.2-16.2)
[2024-12-17 01:53] VITALS: BP 114/68; PULSE 87; RESP 19; TEMP 98.1; O2SAT 99
[2024-12-17 05:00] VITALS: BP 127/76; PULSE 82; RESP 19; TEMP 97.6; O2SAT 98
[2024-12-17 08:32] LABS: Hematocrit 26.6 % (36.0-46.0); Hemoglobin 8.6 g/dL (12.2-16.2); Mean Corpuscular Hemoglobin 28.8 pg (28.0-32.0); Mean Corpuscular Volume 88.8 fL (80.0-100.0); Nucleated Red Blood Cells % 0.0 %
[2024-12-17 08:45] VITALS: BP 124/73; PULSE 80; RESP 16; TEMP 98; O2SAT 99
--- NOTE | 2024-12-17 13:07 | DVHPN2 ---
Subjective The patient is seen and examined at bedside. The patient wanted to go home. No fever or chill. Still have foot pain. Reviewed: Care Plan Changes from previous H/P or p: No Changes Objective Vitals Vital Signs Date Time Temp Pulse Resp B/P (MAP) Pulse Ox O2 Delivery O2 Flow Rate FiO2 12/17/24 08:45 98.0 80 16 124/73 (90) 99 98.0 12/17/24 08:10 Room Air* 0 21 Intake/Output Intake and Output 12/17/24 07:00 Intake Total 1740 ml Balance 1740 ml Intake Oral 1040 ml IV Total 400 ml Blood Product 300 ml # Voids 4 General Appearance: Alert, Oriented X3, Cooperative, No acute distress HEENT: Atraumatic, PERRLA, EOMI, Mucous membr. moist/pink Neck: Supple Lungs: Clear to auscultation Cardiovascular: Regular rate, Normal S1, Normal S2, No murmurs, Gallops, Rubs Abdomen: Normal bowel sounds, Soft, No tenderness Neuro: Cranial nerves 3-12 NL Psych/Mental Status: Mental status NL Medications Current Medications Medications Dose Ordered Sig/Duncan Route Start Time Stop Time Status Last Admin Dose Admin Hydralazine HCl 10 mg Q6HP PRN IV 12/13/24 19:15 12/14/24 22:06 10 MG Vancomycin HCl 0 ml @ 0 mls/hr UD IV 12/13/24 19:15 Piperacillin Sod/ Tazobactam Sod 100 ml @ 25 mls/hr Q8HR IV 12/14/24 06:00 12/17/24 05:28 25 MLS/HR Diagnostic Test (Pha) 1 strip Q6HR 12/14/24 00:00 12/17/24 12:11 1 STRIP Insulin Human Regular Q6HR SC 12/14/24 00:00 12/14/24 06:28 3 UNITS Dextrose 50 ml UD PRN IV 12/13/24 19:15 Ondansetron HCl 4 mg Q4HP PRN IV 12/13/24 19:15 12/17/24 09:26 4 MG Morphine Sulfate 2 mg Q4HPRN PRN IV 12/13/24 19:15 12/15/24 13:28 2 MG Acetaminophen/ Hydrocodone Bitart 1 tab Q4HPRN PRN PO 12/14/24 17:45 Acetaminophen 650 mg Q6HP PRN PO 12/14/24 21:45 12/16/24 21:11 650 MG Artificial Tears 1 drop Q8HPRN PRN EACHEYE 12/16/24 13:45 Laboratory Results Laboratory Tests 12/15/24 10:30 12/17/24 08:07 Microbiology Microbiology Date/Time Source Procedure Growth Status 12/14/24 13:06 Foot Right Gram Stain - Final Resulted 12/14/24 13:06 Foot Right Anaerobic Culture - Preliminary Resulted 12/14/24 13:06 Foot Right Aerobic Culture - Preliminary Resulted 12/13/24 17:20 Blood Blood Culture - Preliminary NO GROWTH AFTER 72 HOURS OF INCUBATION. Resulted Labs and/or images reviewed: Labs reviewed by me Assessment/Plan Assessment/Plan #R foot wound/DM Ulcer -podiatry consulted. s/p I&D, s/p Intra-op cultures -blood culture remained negative. Wound culture showed young colony of Gram- negative rods however the final result is not available yet. We will continuing to monitor -c/w broad spectrum abx -MRSA screen #DM-2 -SSI, CCD medium diet as tolerated. #HTN #HLD -resume home medications as indicated. Explained to the patient that we still monitor the culture of the wound. We will discharge when the bacteria identified. #Anemia, hb6.5, Will repeat Hb, if less than 7 will transfuse 1PRBC. Continuing current management. We will order PICC line today for home IV antibiotic. Continuing wound care. Order wound VAC. This medical document was created using an electronic medical record system with [employer] direct computerized dictation system. Although this document has been carefully reviewed, there may still be some phonetic and typographical errors. These areas are purely typographical due to imperfections of the software programs, and do not reflect any compromise in the patient's medical care. Plan discussed with: Patient, Spouse My Orders Orders - JAYASHREE CHOE MD Procedure Category Date Status Time Artificial Tear 15ml PHA 12/16/24 In Process Opthalmic (Tears Na 13:45 Date of Service: Dec 17, 2024 Billing Provider: JAYASHREE CHOE MD Common Visit Codes: [id number] INP/OBS CARE(HIGH) JAYASHREE CHOE MD Dec 17, 2024 13:07
[2024-12-17 14:28] VITALS: BP 155/85; PULSE 80; RESP 16; TEMP 97.9; O2SAT 100
[2024-12-17] MEDS: LIDOCAINE 1% (LOCAL ANESTH.) PF 5ml SDV ID ONE (14:45)
[2024-12-17 17:00] VITALS: BP 165/84; PULSE 87; RESP 18; TEMP 97.7; O2SAT 98
[2024-12-17] MEDS: VANCOMYCIN 500mg/100mL 100 ML IV SCH (18:00)
[2024-12-17 20:58] VITALS: BP 137/76; PULSE 95; RESP 19; TEMP 98.6; O2SAT 99
[2024-12-17] MEDS: SODIUM CHLOR 0.9% PF (SALINE LOCK) 10ML VIAL/SYR IV SCH (21:50)
[2024-12-18 01:00] VITALS: BP 138/88; PULSE 89; RESP 20; TEMP 98.2; O2SAT 97
[2024-12-18 05:00] VITALS: BP 132/78; PULSE 84; RESP 19; TEMP 98; O2SAT 99
[2024-12-18 09:00] VITALS: BP 153/84; PULSE 83; RESP 20; TEMP 98; O2SAT 99
[2024-12-18] MEDS ORDERED: LEVO500T91 PO (12:02)
[2024-12-18] MEDS ORDERED: HYDR-4902 PO (12:03)
--- NOTE | 2024-12-18 12:13 | DVHDS2 ---
Discharge Summary Date of Admission Dec 13, 2024 at 18:40 Date of Discharge: Dec 18, 2024 Labs/Diagnostic Data: Laboratory Results Test 12/18/24 09:34 12/18/24 06:50 12/17/24 12:50 12/17/24 08:07 POC Glucose 137 mg/dl (70-106) Creatinine 1.37 mg/dL (0.550-1.02) Glomerular Filtration Rate Calc 50 mL/min (>90) Random Vancomycin Level 18.5 ug/mL (5-10) White Blood Count 4.8 10^3/uL (4.4-10.8) Red Blood Count 2.99 10^6/uL (4.0-5.20) Hemoglobin 8.6 g/dL (12.2-16.2) Hematocrit 26.6 % (36.0-46.0) Mean Corpuscular Volume 88.8 fL (80.0-100.0) Mean Corpuscular Hemoglobin 28.8 pg (28.0-32.0) Mean Corpuscular Hemoglobin Concent 32.4 g/dL (32.0-36.0) Red Cell Distribution Width 16.5 % (11.8-14.3) Platelet Count 221 10^3/uL (140-450) Mean Platelet Volume 9.3 fL (6.9-10.8) Neutrophils (%) (Auto) 55.8 % (37.0-80.0) Lymphocytes (%) (Auto) 27.0 % (10.0-50.0) Monocytes (%) (Auto) 10.2 % (0.0-12.0) Eosinophils (%) (Auto) 5.2 % (0.0-7.0) Basophils (%) (Auto) 1.8 % (0.0-2.0) Neutrophils # (Auto) 2.7 10 ^3/uL (1.6-8.6) Lymphocytes # (Auto) 1.3 10 ^3/uL (0.4-5.4) Monocytes # (Auto) 0.5 10 ^3/uL (0-1.3) Eosinophils # (Auto) 0.3 10 ^3/uL (0-0.8) Basophils # (Auto) 0.1 10 ^3/uL (0-0.2) Nucleated Red Blood Cells 0.0 % Vancomycin Level Trough 21.3 ug/mL (5-10) Test 12/16/24 05:00 12/15/24 10:30 12/14/24 05:00 12/13/24 19:08 Prothrombin Time 11.2 sec (9.3-11.8) Prothrombin Time INR 1.06 (0.9-1.15) Activated Partial Thromboplast Time 31.1 SEC (24.5-34.5) Sodium Level 135 mmol/L (136-145) Potassium Level 4.9 mmol/L (3.5-5.1) Chloride Level 103 mmol/L (98-107) Carbon Dioxide Level 24 mmol/L (20-31) Anion Gap 8 (5-15) Blood Urea Nitrogen 14 mg/dL (9-23) BUN/Creatinine Ratio 10.1 (10.0-20.0) Serum Glucose 178 mg/dL (74-106) Hemoglobin A1c 6.1 % A1C (<5.7) Calcium Level 8.0 mg/dL (8.7-10.4) Iron Level 22 ug/dL (50-170) Total Iron Binding Capacity 209 ug/dL (250-425) Percent Iron Saturation 10.5 % (15-50) Total Bilirubin 0.3 mg/dL (0.2-1.0) Aspartate Amino Transferase (AST) 11 U/L (13-40) Alanine Aminotransferase (ALT) < 9 U/L (7-40) Alkaline Phosphatase 125 U/L (46-116) Total Protein 6.6 g/dL (5.7-8.2) Albumin 2.9 g/dL (3.2-4.8) Vitamin B12 Level 820 pg/mL (211-911) Beta HCG, Quantitative < 0.0 mIU/mL (1.5-4.2) Erythrocyte Sedimentation Rate 110 mm/hr (0-20) Test 12/13/24 17:20 Lactic Acid Level 0.5 mmol/L (0.4-2.0) C-Reactive Protein High Sensitivity 0.59 mg/dL (<1.0) Other Laboratory Tests 12/18/24 06:50 12/17/24 08:07 12/15/24 10:30 Condition at Discharge: Good Final Diagnosis/Problems List Osteomylitis of foot Discharge Disposition: Home with Health Services Discharge Instruct/Medications Diet: Consistent carbohydrate Activity: No Restrictions, As Tolerated Follow Up/Referral: pcp 1-2 weeks Scheduled Levofloxacin Hemihydrate (Levaquin 500 Mg), 1 TAB PO DAILY Scheduled PRN Hydrocodone-Acetaminophen (Hydrocodone Bitartrate/AC 5-325 mg), 1 TAB PO Q4HPRN PRN Discharge Statement: "Patient was advised to return to the ER or call 911 if any headaches, dizziness, shortness of breath, chest pain, abdominal pain, bleeding, fevers, or worsening of medical condition. Patient was counseled about treatment plan, medications, possible side effects, patientverbalized understanding. All questions were answered to the best of my ability. This discharge took greater then 30 minutes in planning, reviewing documentation, counseling the patient, and discussing with other team members." ASSESSMENT ASSESSMENT Assessment Osteomylitis of foot JAYASHREE CHOE MD Dec 18, 2024 12:13
--- NOTE | 2024-12-18 12:13 | DVHPN2 ---
Subjective The patient is seen and examined at bedside. The patient wanted to go home. No fever or chill. Still have foot pain. Reviewed: Care Plan Changes from previous H/P or p: No Changes Objective Vitals Vital Signs Date Time Temp Pulse Resp B/P (MAP) Pulse Ox O2 Delivery O2 Flow Rate FiO2 12/18/24 09:00 98.0 83 20 153/84 (107) 99 98.0 12/18/24 08:05 Room Air* 0 21 Intake/Output Intake and Output 12/18/24 07:00 Intake Total 1590 ml Balance 1590 ml Intake Oral 1290 ml IV Total 300 ml # Voids 4 # Bowel Movements 3 General Appearance: Alert, Oriented X3, Cooperative, No acute distress HEENT: Atraumatic, PERRLA, EOMI, Mucous membr. moist/pink Neck: Supple Lungs: Clear to auscultation Cardiovascular: Regular rate, Normal S1, Normal S2, No murmurs, Gallops, Rubs Abdomen: Normal bowel sounds, Soft, No tenderness Neuro: Cranial nerves 3-12 NL Psych/Mental Status: Mental status NL Medications Current Medications Medications Dose Ordered Sig/Duncan Route Start Time Stop Time Status Last Admin Dose Admin Hydralazine HCl 10 mg Q6HP PRN IV 12/13/24 19:15 12/17/24 16:57 10 MG Vancomycin HCl 0 ml @ 0 mls/hr UD IV 12/13/24 19:15 Piperacillin Sod/ Tazobactam Sod 100 ml @ 25 mls/hr Q8HR IV 12/14/24 06:00 12/18/24 05:31 25 MLS/HR Diagnostic Test (Pha) 1 strip Q6HR 12/14/24 00:00 12/18/24 11:13 1 STRIP Insulin Human Regular Q6HR SC 12/14/24 00:00 12/14/24 06:28 3 UNITS Dextrose 50 ml UD PRN IV 12/13/24 19:15 Ondansetron HCl 4 mg Q4HP PRN IV 12/13/24 19:15 12/17/24 09:26 4 MG Morphine Sulfate 2 mg Q4HPRN PRN IV 12/13/24 19:15 12/15/24 13:28 2 MG Acetaminophen/ Hydrocodone Bitart 1 tab Q4HPRN PRN PO 12/14/24 17:45 Acetaminophen 650 mg Q6HP PRN PO 12/14/24 21:45 12/17/24 17:02 650 MG Artificial Tears 1 drop Q8HPRN PRN EACHEYE 12/16/24 13:45 Sodium Chloride 10 ml QSHIFT@10,22 IV 12/17/24 22:00 12/18/24 09:32 10 ML Vancomycin HCl 100 ml @ 200 mls/hr Q16H IV 12/17/24 18:00 12/18/24 09:32 200 MLS/HR Laboratory Results Laboratory Tests 12/15/24 10:30 12/17/24 08:07 12/18/24 06:50 Microbiology Microbiology Date/Time Source Procedure Growth Status 12/14/24 13:06 Foot Right Gram Stain - Final Resulted 12/14/24 13:06 Foot Right Anaerobic Culture - Preliminary Resulted 12/14/24 13:06 Aerobic Culture - Final Pseudomonas aeruginosa Escherichia coli Staphylococcus aureus Streptococcus Group B Resulted 12/13/24 17:20 Blood Blood Culture - Preliminary NO GROWTH AFTER 72 HOURS OF INCUBATION. Resulted Labs and/or images reviewed: Labs reviewed by me Assessment/Plan Assessment/Plan #R foot wound/DM Ulcer -podiatry consulted. s/p I&D, s/p Intra-op cultures -blood culture remained negative. Wound culture showed young colony of Gram- negative rods however the final result is not available yet. We will continuing to monitor -c/w broad spectrum abx -MRSA screen #DM-2 -SSI, CCD medium diet as tolerated. #HTN #HLD -resume home medications as indicated. Explained to the patient that we still monitor the culture of the wound. We will discharge when the bacteria identified. #Anemia, hb6.5, Will repeat Hb, if less than 7 will transfuse 1PRBC. Continuing current management. We will order PICC line today for home IV antibiotic. Continuing wound care. Order wound VAC. Waiting for homehealth set up for IV antibiotic, wound care, wound vac care. Discharge planning. This medical document was created using an electronic medical record system with [employer] direct computerized dictation system. Although this document has been carefully reviewed, there may still be some phonetic and typographical errors. These areas are purely typographical due to imperfections of the software programs, and do not reflect any compromise in the patient's medical care. Plan discussed with: Patient, Spouse My Orders Orders - JAYASHREE CHOE MD Procedure Category Date Status Time Nursing Protocol Picc [facility] 12/17/24 In Process 14:39 Change Dressing Prn [facility] 12/17/24 In Process 14:39 Sodium Chloride Lock PHA 12/17/24 In Process (Saline Lock Ns) 22:00 Do Not Use Picc For [facility] 12/17/24 In Process Blood Cult 14:39 May Draw Blood From [facility] 12/17/24 In Process Picc 14:39 Ok To Use Picc [facility] 12/17/24 In Process 14:39 Change Picc Dressing [facility] 12/17/24 In Process Q7 Days 14:39 * Science Professor CONS 12/18/24 Transmitted Consult Discharge DISCHARGE 12/18/24 Transmitted 12:11 Date of Service: Dec 18, 2024 Billing Provider: JAYASHREE CHOE MD Common Visit Codes: [id number] INP/OBS CARE(HIGH) JAYASHREE CHOE MD Dec 18, 2024 12:13
[2024-12-18 13:00] VITALS: BP 166/87; PULSE 85; RESP 20; TEMP 97.7; O2SAT 96
[2024-12-18 15:03] VITALS: BP 166/87; PULSE 85; RESP 20; TEMP 97.7; O2SAT 96
[2024-12-18 16:47] VITALS: BP 158/92; PULSE 85; RESP 20; TEMP 98.2; O2SAT 99
--- NOTE | 2024-12-19 11:15 | DVHDS2 ---
Discharge Summary Date of Admission Dec 13, 2024 at 18:40 Date of Discharge: Dec 18, 2024 Admitting Diagnosis #Right foot wound/DM non-healing Ulcer #Right foot necrotizing fasciitis and abscess #DM-2 #HTN # hyperlipidemia #Anemia Labs/Diagnostic Data: Laboratory Results Test 12/18/24 17:25 12/18/24 06:50 12/17/24 12:50 12/17/24 08:07 POC Glucose 77 mg/dl (70-106) Creatinine 1.37 mg/dL (0.550-1.02) Glomerular Filtration Rate Calc 50 mL/min (>90) Random Vancomycin Level 18.5 ug/mL (5-10) White Blood Count 4.8 10^3/uL (4.4-10.8) Red Blood Count 2.99 10^6/uL (4.0-5.20) Hemoglobin 8.6 g/dL (12.2-16.2) Hematocrit 26.6 % (36.0-46.0) Mean Corpuscular Volume 88.8 fL (80.0-100.0) Mean Corpuscular Hemoglobin 28.8 pg (28.0-32.0) Mean Corpuscular Hemoglobin Concent 32.4 g/dL (32.0-36.0) Red Cell Distribution Width 16.5 % (11.8-14.3) Platelet Count 221 10^3/uL (140-450) Mean Platelet Volume 9.3 fL (6.9-10.8) Neutrophils (%) (Auto) 55.8 % (37.0-80.0) Lymphocytes (%) (Auto) 27.0 % (10.0-50.0) Monocytes (%) (Auto) 10.2 % (0.0-12.0) Eosinophils (%) (Auto) 5.2 % (0.0-7.0) Basophils (%) (Auto) 1.8 % (0.0-2.0) Neutrophils # (Auto) 2.7 10 ^3/uL (1.6-8.6) Lymphocytes # (Auto) 1.3 10 ^3/uL (0.4-5.4) Monocytes # (Auto) 0.5 10 ^3/uL (0-1.3) Eosinophils # (Auto) 0.3 10 ^3/uL (0-0.8) Basophils # (Auto) 0.1 10 ^3/uL (0-0.2) Nucleated Red Blood Cells 0.0 % Vancomycin Level Trough 21.3 ug/mL (5-10) Test 12/16/24 05:00 12/15/24 10:30 12/14/24 05:00 12/13/24 19:08 Prothrombin Time 11.2 sec (9.3-11.8) Prothrombin Time INR 1.06 (0.9-1.15) Activated Partial Thromboplast Time 31.1 SEC (24.5-34.5) Sodium Level 135 mmol/L (136-145) Potassium Level 4.9 mmol/L (3.5-5.1) Chloride Level 103 mmol/L (98-107) Carbon Dioxide Level 24 mmol/L (20-31) Anion Gap 8 (5-15) Blood Urea Nitrogen 14 mg/dL (9-23) BUN/Creatinine Ratio 10.1 (10.0-20.0) Serum Glucose 178 mg/dL (74-106) Hemoglobin A1c 6.1 % A1C (<5.7) Calcium Level 8.0 mg/dL (8.7-10.4) Iron Level 22 ug/dL (50-170) Total Iron Binding Capacity 209 ug/dL (250-425) Percent Iron Saturation 10.5 % (15-50) Total Bilirubin 0.3 mg/dL (0.2-1.0) Aspartate Amino Transferase (AST) 11 U/L (13-40) Alanine Aminotransferase (ALT) < 9 U/L (7-40) Alkaline Phosphatase 125 U/L (46-116) Total Protein 6.6 g/dL (5.7-8.2) Albumin 2.9 g/dL (3.2-4.8) Vitamin B12 Level 820 pg/mL (211-911) Folic Acid 7.92 ng/mL (>5.38) Beta HCG, Quantitative < 0.0 mIU/mL (1.5-4.2) Erythrocyte Sedimentation Rate 110 mm/hr (0-20) Test 12/13/24 17:20 Lactic Acid Level 0.5 mmol/L (0.4-2.0) C-Reactive Protein High Sensitivity 0.59 mg/dL (<1.0) Other Laboratory Tests 9/2/25 06:50 12/17/24 08:07 12/15/24 10:30 Brief Hx & Hospital Course: This is a 39 years old female with past medical history of diabetes type 2 came to emergency department because of right foot wound the patient apparently see her financial assistance specialist on the day of admission and advised to come to the hospital for further management. She stated that her financial assistance specialist is planning to do debridement in the morning. Dr. Roberson, financial assistance specialist saw the patient. His impression is the patient had right foot necrotizing fasciitis and abscess that need debridement. The patient subsequently had debridement done. The patient had wound VAC placed in her right foot. The patient culture showed multiple bacteria including Pseudomonas, staph aureus and strep group B. is sensitive to Levaquin and also to Zosyn. The patient was on Zosyn and vancomycin in the hospital. I placed the PICC line and we will request IV antibiotics Zosyn 3.375 g IV Q 8 hours for six weeks and oral Levaquin 500 mg p.o. q.day for six weeks. Patient also was found to have acute blood loss anemia with hemoglobin of 6.5. The patient received one packed red blood cell transfusions. The patient continuing to have wound care in the hospital. The patient will be discharged home with home health for IV antibiotic, PICC line care, and wound care. PICC line will be removed after six weeks on IV antibiotic. Follow up with financial assistance specialist, , per schedule. Follow up with primary care physician 1-2 weeks. Activity as tolerated. Diet per home diet. Recommend carb controlled diet Physical exam: HEENT: Normocephalic atraumatic pupils equal react to light and accommodation. Extraocular muscles intact, conjunctiva pink, oropharynx moist, no thrush, no exudate. Lymphatic: No lymphadenopathy Cardiovascular exam: S1, S2 was heard. No murmurs, rubs, gallops Lung: Clear on auscultation bilaterally, no wheeze, rale, rhonchi. GI: Abdominal soft, nondistended, nontenderness, positive bowel sounds. Extremity: No crepitus, cyanosis, edema. Pedal pulses present bilateral. Full range of motion. Skin: Normal turgor, no rash. Psych: Alert, oriented x3. Neurology: No focal deficits, cranial nerve II to XII grossly intact. This medical document was created using an electronic medical record system with [employer] direct computerized dictation system. Although this document has been carefully reviewed, there may still be some phonetic and typographical errors. These areas are purely typographical due to imperfections of the software programs, and do not reflect any compromise in the patient's medical care. Condition at Discharge: Good Final Diagnosis/Problems List #R foot wound/DM non-healing Ulcer #Right foot necrotizing fasciitis and abscess status post debridement and wound VAC placed #DM-2 #HTN # hyperlipidemia #Anemia, possible acute blood loss anemia requiring blood transfusions Discharge Disposition: Home with Health Services Discharge Instruct/Medications Diet: Consistent carbohydrate Activity: No Restrictions, As Tolerated Follow Up/Referral: pcp 1-2 weeks Scheduled Levofloxacin Hemihydrate (Levaquin 500 Mg), 1 TAB PO DAILY Scheduled PRN Hydrocodone-Acetaminophen (Hydrocodone Bitartrate/AC 5-325 mg), 1 TAB PO Q4HPRN PRN Discharge Statement: "Patient was advised to return to the ER or call 911 if any headaches, dizziness, shortness of breath, chest pain, abdominal pain, bleeding, fevers, or worsening of medical condition. Patient was counseled about treatment plan, medications, possible side effects, patientverbalized understanding. All questions were answered to the best of my ability. This discharge took greater then 30 minutes in planning, reviewing documentation, counseling the patient, and discussing with other team members." ASSESSMENT ASSESSMENT Assessment Osteomylitis of foot Date of Service: Dec 19, 2024 Billing Provider: JAYASHREE CHOE MD Common Visit Codes: 10637-QDT/OBS DISCH DAY >30min JAYASHREE CHOE MD Dec 19, 2024 11:15
== END 2024-12-18 19:53 | disposition home health service (06) | DRG 344 ==
LOC: ER 16:42 → OVERFLOW 18:40 → WEST WING 12-14 15:23
PROVIDERS: ADMIT Internal Medicine; ATTEND Internal Medicine
PROC: 0Y9M0ZZ Drainage of Right Foot, Open Approach (ICD-10-PCS; 2024-12-14)
PROC: 30233N1 Transfusion of Nonautologous Red Blood Cells into Peripheral Vein, Percutaneous Approach (ICD-10-PCS; 2024-12-16)
PROC: 02HV33Z Insertion of Infusion Device into Superior Vena Cava, Percutaneous Approach (ICD-10-PCS; principal; 2024-12-17)
PROC: B548ZZA Ultrasonography of Superior Vena Cava, Guidance (ICD-10-PCS; 2024-12-17)
DX: E11.621 Type 2 diabetes mellitus with foot ulcer (principal); M86.8X7 Other osteomyelitis, ankle and foot; M72.6 Necrotizing fasciitis; E44.1 Mild protein-calorie malnutrition; L03.115 Cellulitis of right lower limb; D62 Acute posthemorrhagic anemia; L02.611 Cutaneous abscess of right foot; L97.519 Non-pressure chronic ulcer of other part of right foot with unspecified severity; I10 Essential (primary) hypertension; E78.5 Hyperlipidemia, unspecified; E11.69 Type 2 diabetes mellitus with other specified complication; Z89.432 Acquired absence of left foot; Z88.1 Allergy status to other antibiotic agents
CPT/HCPCS: 36415; 36569; 73630; 76937; 80048; 80053; 80202; 82565; 82607; 82746; 82962; 83036; 83540; 83550; 83605; 84702; 85014; 85018; 85025; 85610; 85652; 85730; 86141; 86850; 86860; 86870; 86880; 86900; 86901; 86906; 86922; 86970; 86971; 87040; 87070; 87075; 87077; 87186; 87205; 96365; G0378; J2003; J2405; J2543; J3490

== ENCOUNTER 2025-01-09 09:15 | Emergency (ER) | payer MEDICAID ==
[~2025-01-09] VITALS: Ht 165.1 cm; Wt 65.9 kg
[~2025-01-09 09:15] MED LIST: HYDR-4902 PO; LEVO500T91 PO
[2025-01-09 09:21] VITALS: BP 146/66; PULSE 85; RESP 16; TEMP 97; O2SAT 97
--- NOTE | 2025-01-09 09:56 | ED.PDOC ---
History of Present Illness HPI Comments 39-year-old female presents to the ER in a wheelchair being pushed by her spouse chief complaint of tube replacement. Patient reports on needing a PICC line changed after the home nurse accidentally pulled it out too much. Denies chills, fever, N/V/D, SOB, CP. No other associated symptoms, modifiers, recent injuries or sick contacts present at this time. Chief Complaint: Tube Replacement Time Seen by MD: 09:55 Reviewed Notes: Nurses Notes, Medications, Allergies Allergies: Coded Allergies: Ceftriaxone (Verified Allergy, Severe, 12/13/24) PT GETS INCREASED GENERALIZED PAIN AND NUMBNESS Doxycycline (Verified Allergy, Unknown, 12/13/24) Home Meds Active Scripts Hydrocodone-Acetaminophen (Hydrocodone Bitartrate/AC 5-325 mg) 1 Tab Tab, 1 TAB PO Q4HPRN PRN, #20 TAB Prov:JAYASHREE CHOE MD 12/18/24 Levofloxacin Hemihydrate (LEVAQUIN 500 MG) 500 Mg Tab, 1 TAB PO DAILY, #45 TAB Prov:JAYASHREE CHOE MD 12/18/24 Information Source: Patient Mode of Arrival: Wheelchair Severity: Moderate Timing: Minutes Duration: Since onset, Minutes Prehospital treatment: None Past Medical History Past Medical History (Other): PICC line Surgical History: Denies all surgeries CHIEF DIGITAL OFFICER History: No Pertinent CHIEF DIGITAL OFFICER History Family History Family History: Reviewed,noncontributory to illness, Unknown Social History Smoker: Non-Smoker Alcohol: Denies ETOH Use Drugs: Denies Drug Use Lives In: Home Constitutional: reports: others (PICC line replaced); denies: chills, diaphoresis, fatigue, fever, malaise, sweats, weakness EENTM: denies: blurred vision, double vision, ear bleeding, ear discharge, ear drainage, ear pain, ear ringing, eye pain, eye redness, hearing loss, mouth pain, mouth swelling, nasal discharge, nose bleeding, nose congestion, nose pain, photophobia, tearing, throat pain, throat swelling, voice changes, others Respiratory: denies: cough, hemoptysis, orthopnea, SOB at rest, shortness of breath, SOB with excertion, stridor, wheezing, others Cardiovascular: denies: chest pain, dizzy spells, diaphoresis, Dyspnea on exertion, edema, irregular heart beat, left arm pain, lightheadedness, palpitations, PND, syncope, others Gastrointestinal: denies: abdomen distended, abdominal pain, blood streaked bowels, constipated, diarrhea, dysphagia, difficulty swallowing, hematemesis, melena, nausea, poor appetite, poor fluid intake, rectal bleeding, rectal pain, vomiting, others Genitourinary: denies: abnormal vagina bleeding, burning, dyspareunia, dysuria, flank pain, frequency, hematuria, incontinence, pain, , vagina discharge, urgency, others Neurological: denies: dizziness, fainting, headache, left sided numbness, left sided weakness, numbness, paresthesia, pre-existing deficit, right sided numbn ess, right sided weakness, seizure, speech problems, tingling, tremors, weakness, others Musculoskeletal: denies: back pain, gout, joint pain, joint swelling, muscle pain, muscle stiffness, neck pain, others Integumetry: denies: bruises, change in color, change in hair/nails, dryness, laceration, lesions, lumps, rash, wounds, others Allergic/Immunocompromised: denies: Difficulty Healing, Frequent Infections, Hives, Itching, others Hematologic/Lymphatic: denies: anemia, blood clots, easy bleeding, easy bruising, swollen glands, others Endocrine: denies: excessive hunger, excessive sweating, excessive thirst, excessive urination, flushing, intolerance to cold, intolerance to heat, unexplained weight gain, unexplained weight loss, others Psychiatric: denies: anxiety, bipolar disorder, depression, hopeless, panic disorder, schizophrenia, sleepless, suicidal, others All Other Systems: Reviewed and Negative Physical Exam General Appearance: No Apparent Distress, Normal HEENT: Normal ENT Inspection, Pharynx Normal, TMs Normal Neck: Full Range of Motion, Non-Tender, Normal, Normal Inspection Respiratory: Chest Non-Tender, Lungs Clear, No Accessory Muscle Use, No Respiratory Distress, Normal Breath Sounds Cardiovascular: No Edema, No JVD, No Murmur, No Gallop, Normal Peripheral Pulses, Regular Rate/Rhythm Breast Exam: Deferred Gastrointestinal: No Organomegaly, Non Tender, No Pulsatile Mass, Normal Bowel Sounds, Soft Genitalia: Deferred Pelvic: Deferred Rectal: Deferred Extremities: No calf tenderness, Normal capillary refill, Normal inspection, Normal range of motion, Non-tender, No pedal edema Musculoskeletal : Apperance: Normal Neurologic: Alert, lockstitch collar setter II-XII nml as Tested, No Motor Deficits, Normal Affect, Normal Mood, No Sensory Deficits Cerebellar Function: Normal Reflexes: Normal Skin: Dry, Normal Color, Warm Lymphatic: No Adenopathy Was a procedure done? Was a procedure done?: No Differential Dx Considerations may include: PICC line complication X-Ray, Labs, Meds, VS Vital Signs Date Time Temp Pulse Resp B/P (MAP) Pulse Ox O2 Delivery O2 Flow Rate FiO2 01/09/25 09:21 97.0 85 16 146/66 97 97.0 Time of 1ST Reevaluation: 10:25 Reevaluation 1ST: Unchanged Patient Education/Counseling: Diagnosis, Treatment, Prognosis Family Education/Counseling: No Family Present SEPSIS Sepsis Screen Date sepsis recognized/suspect: Jan 09, 2025 Time Sepsis recognized/suspect: 924 Recent Procedure: No On Antibiotic Therapy: No Respiratory Rate >20: No Heart Rate >90: No Temp<36 C (96.8 F) or >38.3 C: No SBP <90 or MAP <65 mmHG: No New Acute Mental Status Change: No Is the patient on CPAP, BIPAP,: No Physician Orders * Picc Line Consult (01/09/25 09:54) Vital Signs Date Time Temp Pulse Resp B/P (MAP) Pulse Ox O2 Delivery O2 Flow Rate FiO2 01/09/25 09:21 97.0 85 16 146/66 97 97.0 Departure 1 Departure Time of Disposition: 03:56 (Patient eloped prior to workup the completion) Impression: Primary Impression: PIC line (peripherally inserted central catheter) removal Disposition: LEFT AWOL/ELOPED Condition: Serious Critical Care Note Critical Care Time?: No Stability Stability form required: No I personally scribed for WARD LOPES MD ([email or web address]) on 01/09/25 at 09:56. Electronically submitted by Yobany Mcghee ([email or web address]). WARD LOPES MD Jan 09, 2025 09:56
== END 2025-01-09 12:05 | disposition left against medical advice (07) ==
LOC: ER 09:15
DX: Z45.2 Encounter for adjustment and management of vascular access device (principal); Z88.1 Allergy status to other antibiotic agents; Z88.8 Allergy status to other drugs, medicaments and biological substances